=== PATIENT | male | born 1945 | race Caucasian/White ===

== ENCOUNTER 2018-10-08 04:34 | Observation (INO) | payer MEDICARE ==
[2018-10-08] VITALS (8 sets, daily range): BP systolic 143–182; BP diastolic 63–109; Ht 188 cm; Wt 89.1 kg
[~2018-10-08] VITALS: Ht 188 cm; Wt 89.1 kg
--- NOTE | ~2018-10-08 | OP ---
PATIENT NAME: ANGEL MERRITT MEDICAL RECORD: [id number] :49 LOCATION:D.M2 D.2118 ADMISSION DATE:10/08/18 SURGEON: KAT SMITH MD DATE OF OPERATION: 10/09/2018 PROCEDURE: Left heart catheterization, selective coronary angiography, right femoral artery approach. CATHETERS: A 5-Mongolian sheath, 5/4 left and right Shonna, 5/4 pig. The procedure was well tolerated. The patient was returned to grey, sheath removed. ExoSeal device placed. FINDINGS: Left ventriculography in 30-degree LUNDY view, normal wall motion, normal systolic function. CORONARY ANATOMY: LEFT MAIN: Left main is free of disease. LAD: Free of disease in the diagonal system. CIRCUMFLEX: Free of disease in the marginal system. RIGHT CORONARY ARTERY: Dominant artery, gives rise to PDA, free of disease. IMPRESSION: Normal LV systolic function, normal coronary anatomy. TRANSINT:[id number] Voice Confirmation ID: [id number] DOCUMENT ID: [id number] KAT SMITH MD at 1150 CC: [id number] DICTATION DATE: 10/09/18 1008 TRACKLESS TROLLEY DRIVER: 10/09/18 1015 ADM IN [facility] [address] [place] [address]
--- NOTE | ~2018-10-08 | EC ---
PATIENT:ANGEL MERRITT DATE OF SERVICE: 10/08/18 SEX: M MEDICAL RECORD: [id number] DATE OF : 49 LOCATION:D.M2 D.211 AGE OF PATIENT: 73 ADMISSION DATE: 10/08/18 REFERRING PHYSICIAN: INTERPRETING PHYSICIAN: KAT SMITH MD ECHOCARDIOGRAM REPORT ECHO CHARGES 4 ECHO COMPLETE Date: 10/08/18 CLINICAL DIAGNOSIS: ACS ECHOCARDIOGRAPHIC MEASUREMENTS (adult normal given) AC root (d.<3.7cm) 3.7 cm LV Septum d (<1.2 cm> 1.8 cm Valve Excursion 1.7 cm LV Septum (systole) 2.0 cm Left Atria (s.<4.0cm> 3.9 cm LVPW d(<1.2cm) 1.7 cm RV (d.<2.3cm) 3.7 cm LVPW (sytole) 2.1 cm LV diastole(<5.6CM) 4.7 cm MV E-F(>70mm/sec) cm LV systole 3.5 cm LVOT Diameter 2.2 cm MV exc.(>10mm) 1.2 cm Est.ejection fraction (50-75%) % DOPPLER: LVIT cm/sec A 89.0 cm/sec E 57.0 cm/sec LA cm/sec RVSP 23 mmHg LVOT 1215 cm/sec AOP1/2T m/s Asc. Ao 139 cm/sec RVOT cm/sec RA cm/sec PA cm/sec AV Gradient Peak 7.70 mmHg AV Mean 3.73 mmHg AV Area 3.3 cm MV Gradient Peak 5.36 mmHg MV Mean 1.80 mmHg MV Area cm COMMENTS: Consumer Affairs Manager: 2 MARION IRVING Fur Coat Sewer: 3 Dr. Case TAPE# Pericardial Effusion N DATE OF SERVICE: 10/09/2018 Adequate 2D, color flow, spectral Doppler and M-mode. LVH is present. LV internal dimension is normal. Wall motion normal. EF is greater than or equal to 55%. Aortic valve is sclerotic. There is no evidence of stenosis on Doppler interrogation. Left atrium is normal at 3.9 cm. Mitral valve shows no prolapse. No evidence of rheumatic fever. Trace MR. Right sided chamber size is grossly normal. Trace TR. TRANSINT:[id number] Voice Confirmation ID: [id number] DOCUMENT ID: [id number] ECHOCARDIOGRAM REPORT [id number] ANGEL MERRITT,KAT Hawk MD at 1150 CC: [id number] DICTATION DATE: 10/09/18909 BUGGY RUNNER: 10/09/18 09 ADM IN [facility] [address] [place] [address]
--- NOTE | ~2018-10-08 | OP ---
PATIENT NAME: ANGEL MERRITT MEDICAL RECORD: [id number] :49 LOCATION:D.M2 D.2118 ADMISSION DATE:10/08/18 SURGEON: KAT SMITH MD DATE OF OPERATION: 10/09/2018 PROCEDURE: AFRO. DESCRIPTION: The pigtail catheter was withdrawn down below the diaphragm to the level of the renal arteries and aortofemoral runoff was performed. ABDOMINAL AORTA: The abdominal aorta shows no evidence of aneurysmal dilatation, no evidence of dissection on angiography. RIGHT SYSTEM: Right iliac system is patent to the level of the femoral system. Femoral system fills to about distal third and then is totally occluded through its entire third and reconstitutes late distally at the knee via collaterals. LEFT ILIAC: The left iliac system is occluded at the level of the aorta. There is really no beaking. This reconstitutes distally at the level of the superficial femoral with 2-vessel runoff distally. IMPRESSION: Severe peripheral vascular disease as described above, not amenable to percutaneous intervention and if symptoms worsen, we will consider referral to CT surgery. TRANSINT:[id number] Voice Confirmation ID: [id number] DOCUMENT ID: [id number] KAT SMITH MD at 1150 CC: [id number] DICTATION DATE: 10/09/18 1010 COOKER CHIP: 10/09/18 1027 ADM IN [facility] [facility] [id number] [place] [address]
--- NOTE | ~2018-10-08 | CN ---
PATIENT NAME:ANGEL MERRITT MEDICAL RECORD: [id number] : 49 LOCATION:[facility] D.2118 ADMIT DATE: 10/08/18 ACCOUNT: [id number] CONSULTING PHYSICIAN: KAT SMITH MD REFERRING PHYSICIAN: MACARENA GODINEZ MD DATE OF CONSULTATION: 10/08/2018 HISTORY: A 73-year-old gentleman with a history of coronary disease historically. It was thought he had early atherosclerotic disease in [place] when evaluated 3-4 years ago. He has a history of DVT with pulmonary embolus, status post IVC filter; as well as peripheral vascular disease. He currently is moving back from [place] to [place]. He had an episode of chest pain, diaphoresis, and shortness of breath. He has severe obstructive pulmonary disease as well. PAST MEDICAL HISTORY: Includes; 1. History of peripheral vascular disease. 2. Pulmonary embolus. 3. DVT. 4. Hypertension. 5. Hyperlipidemia. 6. Obstructive pulmonary disease. ALLERGIES: None known. MEDICATIONS: Typically, include Xarelto 20 mg p.o. daily; lisinopril, unknown dose, metoprolol, unknown strength; and omeprazole 20 mg p.o. daily. He states he has been off his medications for several days since moving. SOCIAL HISTORY: Moved back to [place] recently from [place]. Smokes about a pack a day. Social drinker by his report. He is able to take care of his ADLs. REVIEW OF SYSTEMS: The patient reports easy bruising but reports no swollen glands. The patient reports no fever, no night sweats, no significant weight gain, no significant weight loss. No significant exercise tolerance. The patient reports no dry eyes, no irritation, no vision change. Patient reports no difficulty hearing and no ear pain. Patient reports no frequent nose bleeds or nose and sinus problems. Patient reports on arm pain on exertion. No shortness of breath while lying down. No history of heart murmur. Patient reports no cough, no wheezing or coughing up blood. Patient reports no abdominal pain, no vomiting. Normal appetite. No diarrhea and not vomiting blood. No nausea and no constipation. Patient reports no incontinence. No difficulty urinating. No hematuria. No increased frequency. Patient reports no muscle aches. No weakness, no arthralgias, no back pain. No swelling of the extremities. Patient reports no abnormal mole, no jaundice, no rashes. Reports no loss of consciousness. No weakness and no numbness. No seizures, dizziness, or headaches. The patient reports no depression, no sleep disturbance, feeling safe in a relationship and no alcohol abuse. Patient reports on fatigue. Reports no runny nose or sinus pressure. No itching, no hives, and no frequent sneezing. PHYSICAL EXAMINATION: GENERAL: Thin gentleman, in no acute distress. VITAL SIGNS: Blood pressure 136/76. Pulse 103 and regular. HEENT: Normocephalic and atraumatic. CONSULT REPORT [id number] ANGEL MERRITT NECK: No bruits are noted. HEART: Distant II/ systolic ejection murmur. LUNGS: Prolonged expiratory phase and expiratory wheezing. ABDOMEN: Soft and nontender. EXTREMITIES: Pulses are decreased, half plus. There is no edema. DIAGNOSTIC DATA: ECG shows LVH with nonspecific ST-T changes. IMPRESSION: Acute coronary syndrome. I will plan for diagnostic angiography and intervention based on the above. TRANSINT:[id number] Voice Confirmation ID: [id number] DOCUMENT ID: [id number] KAT SMITH MD at 1150 CC: [id number] DICTATION DATE: 10/08/18 1000 ENGINEER SERGEANT: 10/08/18 1328 ADM IN [facility] [address] [place] [address]
--- NOTE | ~2018-10-08 | HEMODYNAMI ---
PATIENT:ANGEL MERRITT MEDICAL RECORD: [id number] : 49 LOCATION:[place] [address] ADMISSION DATE: 10/08/18 Generatedon:10/09/201810:07 Patient name: ANGEL MERRITT Patient #: [id number] SSN: DO B: 1945 Date of study: 10/09/2018 Page: Of Hemodynamic Procedure Report Patient Data Patient Demographics Procedure consent was obtained First Name: ANGEL Gender: Male Last Name: SHAINA : 1945 Patient #: [id number] Age: 73 year(s) Race: Unknown Additional ID: [id number] Contact details [address]: [address] [place] [address] State: [place] City: [place] Zip code: [address] Past Medical History Allergies: No known allergies Admission Admission Data Admission Date: 10/08/2018 Admission Time: 6:31 Room #: [facility]8 Procedure Procedure Types Cath Procedure Diagnostic Procedure LHC LHC w/Coronaries Sedation Charges Moderate Sedation up to 15 minutes Peripheral Cath Diagnostic Procedure Precision Structural Metal Fitter Peripheral Procedures Odthq-Twdwulp-Hoj-Off Procedure Description Procedure Date Procedure Date: 10/09/2018 Procedure Start Time: 9:47 Procedure End Time: 10:04 Procedure Staff Name Function Tan Bhandari MD Performing Physician Juana Granda RT Monitor Hal Mcgee RT Scrub Yasmin Schneider RN Enrollment Consultant Procedure Data Cath Procedure Fluoroscopy Diagnostic fluoroscopy Total fluoroscopy Time: 2.8 time: 2.8 min min Diagnostic fluoroscopy Total fluoroscopy dose: 190 dose: 190 mGy mGy Contrast Material Contrast Material Type Amount (ml) Isovue 300 89 Entry Location Entry Primary Successful Side Size Upsize Upsize Entry Closure Succes sful Closure Location (Fr) 1 (Fr) 2 (Fr) Remarks Device Remarks Femoral Right 5 Fr Exoseal artery Estimated blood loss: 5 ml Diagnostic catheters Device Type Used For End Catheter Placement MULTIPACK JL 4.0 5Fr Left Coronary catheter Angiography MULTIPACK 3DRC 5Fr Right Coronary catheter Angiography MULTIPACK Pigtail 5 Fr LV Angiography catheter MULTIPACK Pigtail 5 Fr Abdominal catheter aortogram with runoff Procedure Complications No complications Procedure Medications Medication Administration Route Dosage 0.9% NaCl I.V. 100 ml/hr Oxygen etCO2 Nasal cannula 2 l/min Lidocaine 2% added to field 20 Heparin Flush Bag added to field 2 bags (1000units/500ml NS) Versed I.V. 2 mg Fentanyl I.V. 50 mcg Versed I.V. 1 mg Hemodynamics Rest Heart Rate: 62 (bpm) Pressure Samples Time Site Value (mmHg) Purpose Heart Use Rate(bpm) 9:55 LV 151/11,17 EDP 62 9:55 AO 143/73(98) Pullback 63 9:55 LV 151/13,20 Pullback 63 Gradients Valve Time Site 1 Site 2 Mean SEP/DFP Peak To Heart Use (mmHg) (sec/min) Peak Rate (mmHg) (bpm) Aortic 9:55 LV AO 8 19 8 63 151/13,20 143/73(98) Calculations Valve P-P Mean Valve Index Valve Source Name Gradient Area Flow (cm2) Aortic 8 8 8 8 Snapshots Pre Cath Intra NCS Post Cath Vital Signs Time Heart Resp SPO2 etCO2 NIBP (mmHg) Rhythm Pain Sedation Rate (ipm) (%) (mmHg) Status Level (bpm) 9:37:00 64 17 100 18.8 172/94(133) NSR 0 (11) 10(A) , No pain 9:41:23 63 15 100 16.5 158/87(124) NSR 0 (11) 10(A) , No pain 9:45:39 63 15 98 20.8 152/85(119) NSR 0 (11) 10(A) , No pain 9:49:55 65 15 99 15 145/86(119) NSR 0 (11) 10(A) , No pain 9:54:13 66 16 98 25.6 141/80(114) NSR 0 (11) 10(A) , No pain 9:58:31 68 15 99 24.8 147/78(107) NSR 0 (11) 10(A) , No pain 10:02:47 60 15 100 26.3 153/81(119) NSR 0 (11) 10(A) , No pain Medications Time Medication Route Dose Verified Delivered Reason Notes Effe ctiveness by by 9:33:43 0.9% NaCl I.V. 100 Tan Hoffman used for ml/hr [facility] procedure MD VELASQUEZ 9:33:52 Oxygen etCO2 2 Tan Hoffman used for Nasal l/min [facility] Schneider procedure cannula MD VELASQUEZ 9:33:59 Lidocaine 2% added 20ml Tan Maddox for local to vial [facility] anesthetic field MD ROCHA 9:34:05 Heparin Flush added 2 Tan Maddox used for Bag to bags [facility] procedure (1000units/500ml field MD ROCHA NS) 9:45:09 Versed I.V. 2 mg Tan [place] for [facility] Schneider sedation MD VELASQUEZ 9:45:21 Fentanyl I.V. 50 Tan [place] for mcg [facility] Schneider sedation RN 9:52:45 Versed I.V. 1 mg Tan [place] for [facility] Schneider sedation MD VELASQUEZshampoo person Log Time Note 9:11:18 Juana Counts RT(R) sent for patient. Start room use. 9:11:19 Time tracking: Regular hours (M-F 7:00 - 5:00) 9:11:22 Plan of Care:Hemodynamics will remain stable., Cardiac rhythm will remain stable., Comfort level will be maintained., Respiratory function will remain adequate., Patient/ family verbilizes understanding of procedure., Procedure tolerated without complication., Recovers from procedure without complications.. 9:24:41 Patient received from PCU to [facility] 3 Alert and oriented. Tansferred to table in Supine position. 9:24:43 Warm blankets applied, and toño hugger turned on for patient comfort. 9:24:43 Correct patient and procedure confirmed by team. 9:24:44 Signed procedure consent form obtained from patient. 9:24:45 ECG and BP/O2 sat monitors applied to patient. 9:33:43 0.9% NaCl 100 ml/hr I.V. was administered by Yasmin Schneider RN; used for procedure; 9:33:52 Oxygen 2 l/min etCO2 Nasal cannula was administered by Yasmin Schneider RN; used for procedure; 9:33:59 Lidocaine 2% 20ml vial added to field was administered by Tan Bhandari MD; for local anesthetic; 9:34:05 Heparin Flush Bag (1000units/500ml NS) 2 bags added to field was administered by Tan Bhandari MD; used for procedure; 9:35:48 Vital chart was started 9:35:50 Rhythm: sinus rhythm 9:35:52 Full Disclosure recording started 9:36:03 H&P Date Dictated: 10/09/2018 Within 30 days and on chart.. 9:36:04 Pre-procedure instructions explained to patient. 9:36:05 Pre-op teaching completed and patient verbalized understanding. 9:36:06 Family unavailable. 9:36:09 Patient NPO since Midnight. 9:36:15 Patient allergic to No known allergies 9:36:17 Is the patient allergic to Iodine/contrast media? No. 9:36:18 Is patient on blood thinner?Yes 9:36:34 XARELTO LAST DOSE 10/04/18 9:36:36 Patient diabetic? No. 9:36:38 Previous problem with sedation/anesthesia? No ? 9:36:39 Snore? Yes 9:36:40 Sleep apnea? Yes 9:36:41 Deviated septum? No 9:36:41 Opens mouth fully? Yes 9:36:42 Sticks out tongue? Yes 9:36:45 Airway obstruction? Yes COPD 9:36:47 Dentures? No ? 9:37:54 Pre procedure: right dorsailis pedis pulse 1+ Palpable, but thready & weak; easily obliterated 9:37:58 Modified Herrera's test Ulnar < 7 seconds 9:37:59 Patient pain scale 0/10 ?. 9:38:08 IV patent on arrival in left forearm with 0.9% NaCl at KVO. 9:38:10 Lab results completed and on chart. 9:38:14 Bilateral groins area was prepped with chlora-prep and draped in sterile fashion 9:38:15 Alarms reviewed by R. N. 9:38:16 Sharps counted by scrub and verified by R.N. 9:38:20 Use device set Femoral Dx 9:38:25 ACIST Syringe (29460) opened to sterile field. 9:38:26 Bag Decanter (2002S) opened to sterile field. 9:38:27 Medline Cath Pack ([id number]) opened to sterile field. 9:38:27 DIAGNOSTIC WIRE .035 260cm J wire ([id number]) opened to sterile field. 9:38:28 ACIST Hand Control (71977) opened to sterile field. 9:38:29 ACIST Manifold (36752) opened to sterile field. 9:38:29 DIAGNOSTIC Multipack 5Fr catheter set ([id number]) opened to sterile field. 9:38:31 Tegaderm 4 x 4 (1626W) opened to sterile field. 9:38:44 SHEATH 5FR [place] ([id number]) opened to sterile field. 9:39:55 Baseline sample Acquired. 9:42:54 Zero performed for pressure channel P1 9:44:00 Final Timeout: patient, procedure, and site verified with staff and physician. All members of the team are in agreement. 9:44:06 Right groin site verified by team. 9:44:09 Physical assessment completed. ASA score P 2 - A patient with mild systemic disease as per Tan Bhandari MD. 9:44:13 Sedation plan: IV Moderate Sedation Medication:Versed, Fentanyl 9:45:09 Versed 2 mg I.V. was administered by Yasmin Schneider RN; for sedation; 9:45:21 Fentanyl 50 mcg I.V. was administered by Yasmin Schneider RN; for sedation; 9:46:57 Procedure started. 9:47:01 Local anesthetic to right femoral artery with Lidocaine 2% by Tan Bhandari MD.INITIAL ACCESS ONLY 9:47:14 A 5 Fr sheath was inserted into the Right Femoral artery 9:50:20 A MULTIPACK JL 4.0 5Fr catheter was advanced over the wire and used for Left Coronary Angiography. 9:51:55 Catheter removed. 9:52:45 Versed 1 mg I.V. was administered by Yasmin Schneider RN; for sedation; 9:53:27 A MULTIPACK 3DRC 5Fr catheter was advanced over the wire and used for Right Coronary Angiography. 9:54:20 Catheter removed. 9:54:27 A MULTIPACK Pigtail 5 Fr catheter was advanced over the wire and used for LV Angiography. 9:55:23 LV gram done using LUNDY 9:55:25 LV hemodynamics recorded. 9:55:28 Injector settings: Ml/sec: 10, Volume: 20, 9:55:33 EF : 50 % 9:55:46 EXOSEAL 5Fr (EX500) opened to sterile field. 9:57:02 A MULTIPACK Pigtail 5 Fr catheter was advanced over the wire and used for Abdominal aortogram with runoff. 9:58:15 Procedure type changed to Cath procedure, Diagnostic procedure, LHC, LHC w/Coronaries, Sedation Charges, Moderate Sedation up to 15 minutes, Peripheral Cath Diagnostic Procedure, Precision Structural Metal Fitter Peripheral Procedures, Mjafv-Mvmaxhy-Apd-Off 9:59:47 Catheter removed. 9:59:55 Sheath removed intact; hemostasis achieved with Exoseal to the Right Femoral artery. 10:00:01 Procedure ended.(Physican Out) 10:01:03 Fluoroscopy time 02.80 minutes. 10:01:07 Fluoroscopy dose: 190 mGy 10:01:07 Flurop Dose total: 190 10:01:10 Contrast amount:Isovue 300 89ml. 10:01:11 Sharps counted by scrub and verified by R.N. 10:01:12 Insertion/operative site no bleeding no hematoma. 10:01:16 Post-op/insertion site Right Femoral artery dressed using a 4 x 4 and Tegaderm. 10:01:18 Post right femoral artery:stable, clean and dry 10:01:20 Post Procedure Pulses reassessed and unchanged 10:01:22 Post-procedure physical assessment completed. ASA score P 2 - A patient with mild systemic disease as per Tan Bhandari MD. 10:01:24 Post procedure rhythm: unchanged. 10:01:37 Estimated blood loss: 5 ml 10:01:38 Post procedure instruction explained to patient.Patient verbalizes understanding. 10:01:39 Patient needs reinforcement of post procedure teaching. 10:01:47 Procedure Complication : No complications 10:01:50 See physician's report for complete and final results. 10:02:21 Procedure and supply charges have been captured, reviewed, submitted and are correct. 10:04:24 Vital chart was stopped 10:04:26 Report given to PCU. 10:04:29 Patient transfered to PCU with Bed. 10:04:38 Procedure ended. 10:04:38 Full Disclosure recording stopped 10:04:42 End room use (Document Last) Device Usage Item Name Manufacture Quantity Catalog Hospital Part Current Minimal L ot# / Number Charge Number Stock Stock Serial# Code ACIST Acist 1 17430 708762 989876 212548 20 Syringe Cellufun (82763) Systems Inc Bag Microtek 1 686645 44131 761434 5 Decanter Medical Inc. () Medline Medline 1 [id number] 985810 65205 376956 5 Cath Pack ([id number]) DIAGNOSTIC St Lino 1 608665 908358 488915 376762 30 WIRE .035 260cm J wire (011769) ACIST Hand Acist 1 35229 405925 905282 735274 5 Control Medical (29331) Systems Inc ACIST Acist 1 97856 215466 064866 879429 5 Manifold Medical (68990) Systems Inc DIAGNOSTIC Cardinal 1 TA0783 709454 74763 965076 30 Multipack Health 5Fr catheter set ([id number]) Tegaderm 4 3M 1 1626W 246006 406633 437434 5 x 4 (1626W) SHEATH 5FR Terumo 1 [id number] 894631 016969 035138 40 [place] (CYB156) MULTIPACK Cardinal 1 069181 5 JL 4.0 5Fr Health catheter MULTIPACK Cardinal 1 706414 5 3DRC 5Fr Health catheter MULTIPACK Cardinal 1 252541 5 Pigtail 5 Health Fr catheter EXOSEAL 5Fr Cardinal 1 EX500 056551 424623 554219 10 (EX500) Health Signature Audit [place] Stage Time Signature Unsigned Intra-Procedure 10/09/2018 Juana 10:07:23 AM Counts RT(R) Signatures Monitor : Juana Signature : Counts RT Date : Time : [place] [address] [place] [address]
[2018-10-08] MEDS ORDERED: LISINOPRIL2.5 MG (04:41)
[2018-10-08] MEDS ORDERED: XARELTO10 MG PO (04:42)
[2018-10-08] MEDS ORDERED: LOPRESSOR25 MG (04:42)
[2018-10-08 05:10] LABS: BASOPHILS 0.3 % (0-2); HEMATOCRIT 45.5 % (42.0-54.0); HEMOGLOBIN 16.4 g/dL (13.5-17.5); IMMATURE GRANULOCYTES 0.3 % (0-5); LYMPHOCYTES 47.1 % (15-50); MCH 37.8 pg (26.0-34.0); MCV 104.8 fL (80.0-100.0); MEAN PLATELET VOLUME 11.3 fL (7.4-10.4); MONOCYTES 6.7 % (2-11); NEUTROPHILS 41.6 % (40-80); PLATELET COUNT 206 10x3/uL (130-400); RBC 4.34 10x6/uL (4.20-6.10); RDW 15.8 % (11.5-14.5); WBC 6.8 10x3/uL (4.8-10.8)
[2018-10-08 05:33] LABS: ALBUMIN 3.6 g/dL (3.4-5.0); ALKALINE PHOSPHATASE 112 U/L (46-116); ALT (SGPT) 19 U/L (10-68); BILIRUBIN - TOTAL 0.83 mg/dL (0.2-1.3); CALC OSMOLALITY 276 mosm/kg (275-300); CALCIUM 8.6 mg/dL (8.5-10.1); CARBON DIOXIDE 26.2 mmol/L (21.0-32.0); CHLORIDE - SERUM 101 mmol/L (98-107); GLUCOSE 102 mg/dL (74-106); POTASSIUM - SERUM 3.5 mmol/L (3.5-5.1); PROTEIN - SERUM 8.2 g/dL (6.4-8.2); SODIUM 140 mmol/L (136-145); UREA NITROGEN 8 mg/dL (7-18); eGFR NON AFRICAN AMERICAN 78 mL/min (90-120)
[2018-10-08 05:43] LABS: LIPASE 266 U/L (73-393); PRO BNP 328 pg/mL (0-125)
[2018-10-08 05:44] LABS: MAGNESIUM - SERUM 0.9 mg/dL (1.8-2.4); TROPONIN-I < 0.017 ng/mL (0.000-0.060)
[2018-10-08] MEDS ORDERED: OMEPRAZOLE20 M1 PO (07:56)
[2018-10-08 11:13] LABS: UDS - AMPHET POSITIVE QUAL (NEGATIVE); UDS - BARB NEGATIVE QUAL (NEGATIVE); UDS - BENZO NEGATIVE QUAL (NEGATIVE); UDS - COCAINE POSITIVE QUAL (NEGATIVE); UDS - OPIATE NEGATIVE QUAL (NEGATIVE); UDS - PCP NEGATIVE QUAL (NEGATIVE); UDS - THC NEGATIVE QUAL (NEGATIVE)
[2018-10-08 11:30] LABS: APPEARANCE CLEAR (CLEAR); BILIRUBIN NEGATIVE (NEGATIVE); COLOR YELLOW (YELLOW); GLUCOSE NEGATIVE (NEGATIVE); KETONE NEGATIVE (NEGATIVE); NITRITE NEGATIVE (NEGATIVE); PROTEIN NEGATIVE (NEGATIVE); SPECIFIC GRAVITY 1.015 (1.005-1.020); UROBILINOGEN NORMAL (NORMAL)
[2018-10-08 11:31] LABS: BACTERIA FEW /hpf (NONE SEEN); EPITHELIAL CELLS 0-5 /hpf (0-5); HYALINE CAST 0-5 /lpf (NONE SEEN); RED CELLS - URINE 0-5 /hpf (0-5); WHITE CELLS - URINE 0-5 /hpf (0-5)
[2018-10-08 19:06] LABS: MAGNESIUM - SERUM 2.1 mg/dL (1.8-2.4); POTASSIUM - SERUM 4.5 mmol/L (3.5-5.1)
[2018-10-09 01:15] VITALS: BP 155/71
[2018-10-09 04:45] VITALS: BP 133/66
[2018-10-09 05:06] LABS: BASOPHILS 0 % (0-2); EOSINOPHILS 0 % (0-7); HEMOGLOBIN 13.4 g/dL (13.5-17.5); IMMATURE GRANULOCYTES 0.2 % (0-5); LYMPHOCYTES 12.3 % (15-50); MCH 37.2 pg (26.0-34.0); MCHC 35.3 g/dL (31.0-37.0); MCV 105.6 fL (80.0-100.0); MEAN PLATELET VOLUME 11.4 fL (7.4-10.4); MONOCYTES 3.1 % (2-11); NEUTROPHILS 84.4 % (40-80); PLATELET COUNT 170 10x3/uL (130-400); RDW 15.8 % (11.5-14.5)
[2018-10-09 05:08] LABS: WBC 9.1 10x3/uL (4.8-10.8)
[2018-10-09 05:31] LABS: ANION GAP 12.6 mmol/L (8-16); CALCIUM 8.2 mg/dL (8.5-10.1); CARBON DIOXIDE 25.9 mmol/L (21.0-32.0); CHOL - HDL RATIO 2.6 ratio (2.3-4.9); CREATININE - SERUM 1.2 mg/dL (0.6-1.3); LDL-HDL RATIO 1.4 ratio (1.5-3.5); POTASSIUM - SERUM 4.5 mmol/L (3.5-5.1)
[2018-10-09 08:47] VITALS: BP 110/81
[2018-10-09 11:34] VITALS: BP 148/77
== END 2018-10-09 13:17 | disposition home or self-care (01) ==
LOC: D.ER 04:34 → D.M2 06:31 → OBSVTIME 06:31 → D.M2 06:31
PROVIDERS: Family Medicine; Internal Medicine Nephrology
DX: R07.9 Chest pain, unspecified (principal); I70.203 Unspecified atherosclerosis of native arteries of extremities, bilateral legs; I70.92 Chronic total occlusion of artery of the extremities; D75.89 Other specified diseases of blood and blood-forming organs; J44.9 Chronic obstructive pulmonary disease, unspecified; F15.10 Other stimulant abuse, uncomplicated; F14.10 Cocaine abuse, uncomplicated; E83.42 Hypomagnesemia; F10.239 Alcohol dependence with withdrawal, unspecified; K21.9 Gastro-esophageal reflux disease without esophagitis; I10 Essential (primary) hypertension; E78.5 Hyperlipidemia, unspecified; Z86.711 Personal history of pulmonary embolism; Z86.718 Personal history of other venous thrombosis and embolism